=== PATIENT | male | born 1965 | race Caucasian/White ===

== ENCOUNTER 2022-01-06 06:29 | Day surgery (SDC) | payer BC, OTHER ==
[~2022-01-06] VITALS: Ht 165.1 cm; Wt 83.0 kg
[~2022-01-06 06:29] MED LIST: HYDROCHLOROTH12.5 MG PO; LABETALOL HYDR200 MG; LIPITOR40 M1 PO; LOSARTAN POTASS50 MG PO; NORVASC5 M1 PO; OMEPRAZOLE DR40 MG
[2022-01-06 09:47] VITALS: BP 143/92
== END 2022-01-06 09:15 | disposition home or self-care (01) | DRG 561 ==
LOC: ORM 06:29
PROVIDERS: ATTEND Orthopaedic Surgery
PROC: 0SNDXZZ Release Left Knee Joint, External Approach (ICD-10-PCS; principal; 2022-01-06)
DX: T84.82XA Fibrosis due to internal orthopedic prosthetic devices, implants and grafts, initial encounter (principal); J44.9 Chronic obstructive pulmonary disease, unspecified; I10 Essential (primary) hypertension; M70.71 Other bursitis of hip, right hip; Y83.1 Surgical operation with implant of artificial internal device as the cause of abnormal reaction of the patient, or of later complication, without mention of misadventure at the time of the procedure; Z96.652 Presence of left artificial knee joint; Z91.19 Patient's noncompliance with other medical treatment and regimen
CPT/HCPCS: J0131